=== PATIENT | male | born 1970 | race African-American/Black ===

== ENCOUNTER 2019-08-22 14:55 | Emergency (ER) | payer SELFPAY | END 2019-08-22 16:46 | disposition left against medical advice (07) | LOC: ER 16:37 | DX: Z53.21 Procedure and treatment not carried out due to patient leaving prior to being seen by health care provider (principal) ==

== ENCOUNTER 2025-05-01 11:59 | Emergency (ER) | payer MEDICAID ==
[~2025-05-01] VITALS: Ht 180.3 cm; Wt 77.1 kg
[2025-05-01 12:16] VITALS: TEMP 36.7; O2SAT 100
[2025-05-01] MEDS ORDERED: AMOX1TAB16 MT (13:13)
[2025-05-01] MEDS ORDERED: CIPR1VIA2 EACH EAR (13:13)
[2025-05-01] MEDS ORDERED: BICT1TAB PO (13:13)
[2025-05-01] MEDS ORDERED: FLUT9.9S BOTHNSTRLS (13:13)
[2025-05-01] MEDS ORDERED: LORA-249 MT (13:18)
[2025-05-01 13:33] VITALS: BP 117/72; PULSE 82; RESP 12; O2SAT 100
[2025-05-01] MEDS ORDERED: SODI90SP BOTHNSTRLS (13:34)
== END 2025-05-01 13:40 | disposition home or self-care (01) ==
LOC: ER 11:59
DX: H60.393 Other infective otitis externa, bilateral (principal); H65.91 Unspecified nonsuppurative otitis media, right ear; F41.9 Anxiety disorder, unspecified; Z79.899 Other long term (current) drug therapy
CPT/HCPCS: 99283

== ENCOUNTER 2025-06-10 14:19 | Emergency (ER) | payer MEDICAID ==
[~2025-06-10] VITALS: Ht 180.3 cm; Wt 80.0 kg
[~2025-06-10 14:19] MED LIST: AMOX1TAB16 MT; BICT1TAB PO; CIPR1VIA2 EACH EAR; FLUT9.9S BOTHNSTRLS; LORA-249 MT; SODI90SP BOTHNSTRLS
[2025-06-10 14:40] VITALS: O2SAT 100
[2025-06-10] MEDS: LIDOCAINE HCL 1% 20ML VIAL MC ONE (15:55)
[2025-06-10] MEDS: CEFTRIAXONE SODIUM 500MG VIAL IM ONE (15:55)
[2025-06-10] MEDS ORDERED: SULF1TAB48 MT (19:15)
[2025-06-10] MEDS ORDERED: BICT1TAB PO (19:15)
[2025-06-10] MEDS ORDERED: LEVO-65 MT (19:15)
[2025-06-10] MEDS ORDERED: DOXY100C5 MT (19:15)
[2025-06-10] MEDS ORDERED: ACET-2708 MT (19:16)
[2025-06-10] MEDS: KETOROLAC 15MG/ML VIAL IM ONE (19:34)
[2025-06-10] MEDS: LORAZEPAM 0.5MG TABLET PO ONE (19:35)
[2025-06-10 19:40] VITALS: BP 139/92; PULSE 73; RESP 12; TEMP 36.5; O2SAT 100
[2025-06-13 06:12] LABS: HSV TYPE 2 SPECIFIC AB IGG Non Reactive (Non Reactive)
== END 2025-06-10 19:47 | disposition home or self-care (01) ==
LOC: ER 14:19
DX: L72.9 Follicular cyst of the skin and subcutaneous tissue, unspecified (principal); N49.2 Inflammatory disorders of scrotum; Z20.2 Contact with and (suspected) exposure to infections with a predominantly sexual mode of transmission; Z76.0 Encounter for issue of repeat prescription; Z79.899 Other long term (current) drug therapy
CPT/HCPCS: 86695; 86696; 86592; 93976; 76870; 96372; 99285; J0696; J1885; J2003; Z7610

== ENCOUNTER 2025-06-21 09:35 | Emergency (ER) | payer MEDICAID ==
[~2025-06-21] VITALS: Ht 180.3 cm; Wt 80.0 kg
[~2025-06-21 09:35] MED LIST changes: +ACET-2708 MT; +DOXY100C5 MT; +LEVO-65 MT; +SULF1TAB48 MT
[2025-06-21 09:40] VITALS: O2SAT 100
[2025-06-21 10:18] LABS: CLARITY URINE CLOUDY (CLEAR); COLOR URINE YELLOW (YELLOW); GLUCOSE URINE NEGATIVE (NEGATIVE); KETONES URINE TRACE (NEGATIVE); LEUKOCYTE ESTERASE URINE 1+ (NEGATIVE); NITRITE URINE NEGATIVE (NEGATIVE); OCCULT BLOOD URINE 3+ (NEGATIVE); PH URINE 5.5 (4.5-8.0); PROTEIN URINE 1+ (NEGATIVE); SPECIFIC GRAVITY URINE 1.022 (1.005-1.030); UROBILINOGEN URINE 0.2 E.U./dL (0.2-1.0)
[2025-06-21 10:40] LABS: RBC URINE TNTC /hpf (0-2)
[2025-06-21 10:40] LABS: BASOPHILS % 0.6 % (0.0-2.0); EOSINOPHILS % 2.5 % (0.0-5.0); HEMATOCRIT. 43.1 % (42.0-52.0); HEMOGLOBIN. 14.0 g/dL (14.0-18.0); LYMPHOCYTES % 18.1 % (20.0-50.0); MEAN PLATELET VOLUME 9.0 fl (7.4-10.4); MONOCYTES % 8.0 % (2.0-8.0); NEUTROPHILS % 70.8 % (40.0-76.0); PLATELET 252 x1000/uL (130-400); RED BLOOD CELL COUNT 5.18 mill/uL (4.7-6.1); RED CELL DISTRIBUTION WIDTH 14.7 % (11.6-14.6)
[2025-06-21 10:41] LABS: SQUAMOUS EPITHELIAL CELL URINE FEW /lpf (RARE/1+)
[2025-06-21 10:42] LABS: BACTERIA URINE TRACE
[2025-06-21 11:03] LABS: CREATININE 1.4 mg/dL (0.6-1.3); UREA NITROGEN BLOOD 23 mg/dL (9-23)
[2025-06-21] MEDS: LIDOCAINE 5% PATCH TOP SCH (12:49)
[2025-06-21] MEDS ORDERED: LIDO-53 TP (13:35)
[2025-06-21] MEDS ORDERED: BO1 TP (13:35)
[2025-06-21] MEDS ORDERED: CIPR-452 MT (13:35)
[2025-06-21 14:10] VITALS: BP 113/62; PULSE 65; RESP 14; TEMP 36.7; O2SAT 100
== END 2025-06-21 14:11 | disposition home or self-care (01) ==
LOC: ER 09:35
DX: S16.1XXA Strain of muscle, fascia and tendon at neck level, initial encounter (principal); N30.01 Acute cystitis with hematuria; M79.644 Pain in right finger(s); Z79.899 Other long term (current) drug therapy; X58.XXXA Exposure to other specified factors, initial encounter; Y93.89 Activity, other specified; Y92.89 Other specified places as the place of occurrence of the external cause; Y99.8 Other external cause status
CPT/HCPCS: 36415; 80048; 81003; 85025; 99283

== ENCOUNTER 2025-07-26 16:27 | Emergency (ER) | payer MEDICAID ==
[~2025-07-26] VITALS: Ht 175.3 cm; Wt 75.0 kg
[~2025-07-26 16:27] MED LIST changes: +BO1 TP; +CIPR-494 MT; +LIDO-53 TP
[2025-07-26 17:12] VITALS: O2SAT 100
[2025-07-26] MEDS ORDERED: KETO10TA2 MT (18:30)
[2025-07-26] MEDS ORDERED: LIDO700A30 TP (18:30)
[2025-07-26] MEDS: KETOROLAC 30MG/ML VIAL IM ONE (18:43)
[2025-07-26] MEDS: LIDOCAINE 5% PATCH TOP STA (18:43)
[2025-07-26 18:50] VITALS: BP 121/78; PULSE 81; RESP 18; TEMP 37.1; O2SAT 100
== END 2025-07-26 18:53 | disposition home or self-care (01) ==
LOC: ER 16:27
DX: G89.29 Other chronic pain (principal); M25.512 Pain in left shoulder; Z76.0 Encounter for issue of repeat prescription; Z79.899 Other long term (current) drug therapy
CPT/HCPCS: 99283; 73030; 96372; J1885

== ENCOUNTER 2025-09-08 19:16 | Emergency (ER) | payer MEDICAID ==
[~2025-09-08] VITALS: Ht 180.3 cm; Wt 79.0 kg
[~2025-09-08 19:16] MED LIST changes: +KETO10TA2 MT; +LIDO700A30 TP
[2025-09-08] MEDS ORDERED: BICT1TAB PO (19:22)
[2025-09-08 19:41] VITALS: O2SAT 98
[2025-09-08 20:05] VITALS: BP 103/73; PULSE 84; RESP 20; TEMP 36.8; O2SAT 98
== END 2025-09-08 20:09 | disposition home or self-care (01) ==
LOC: ER 19:16
DX: Z76.0 Encounter for issue of repeat prescription (principal)
CPT/HCPCS: 99282